=== PATIENT | male | born 1955 | race African-American/Black ===

== ENCOUNTER 2024-07-08 05:23 | Day surgery (SDC) | payer OTHER ==
[2024-07-07 15:50] VITALS: BMI 23.7
[2024-07-08] MEDS ORDERED: PROPOFOL 20 ML ONE ×2 (11:55→12:49)
[2024-07-08] MEDS ORDERED: ONDANSETRON 4 MG/2 ML VIAL ONE (11:55)
[2024-07-08] MEDS ORDERED: DEXAMETHASONE SOD PHOSPHATE 4 MG/1 ML VIAL ONE ×2 (11:55→12:56)
[2024-07-08] MEDS ORDERED: MIDAZOLAM HCL 2 MG/2 ML SINGLE DOSE VIAL ONE (11:55)
[2024-07-08] MEDS ORDERED: VANCOMYCIN 1,000 MG VIAL (RESTRICTED TO ID ONLY) ONE (11:55)
[2024-07-08] MEDS ORDERED: LIDOCAINE HCL 2% 100 MG/5 ML DISP.SYRIN ONE (11:56)
[2024-07-08] MEDS: VANCOMYCIN 1 GM in NS (PRE-DOCKED) 1,000 MG/250 ML (RESTRICTED TO ID ONLY) IVPB ONE (11:58)
[2024-07-08] MEDS ORDERED: GENTAMICIN SO4 80 MG/2 ML VIAL ONE (12:03)
[2024-07-08] MEDS: GENTAMICIN 80MG PREMIX BAG IVPB ONE (12:25)
[2024-07-08] MEDS ORDERED: ceFAZolin SODIUM 1 GM VIAL ONE (12:57)
[2024-07-08] MEDS: ceFAZolin SODIUM 1 GM VIAL IVPB ONE (12:58)
[2024-07-08] MEDS ORDERED: SUGAMMADEX SODIUM 200 MG/2 ML VIAL ONE (13:08)
[2024-07-08] MEDS: LIDOCAINE HCL 1%, 10 MG/ML (50 mL VIAL) INF ONE (13:15)
[2024-07-08] MEDS: BUPIVACAINE HCL/PF 0.5% (5 MG/ML) 30 ML VIAL IJ ONE (13:15)
[2024-07-08] MEDS ORDERED: ONDANSETRON 4 MG/2 ML VIAL IVPUSH PRN (14:31)
[2024-07-08] MEDS ORDERED: oxyCODONE HCL 5 MG TABLET PO PRN (14:31)
[2024-07-08] MEDS ORDERED: LACTATED RINGERS SOLUTION 1,000 ML IV SCH (14:45)
[2024-07-08] MEDS: ACETAMINOPHEN INJECTION 100 ML ONE (14:58)
[2024-07-08] MEDS: ACETAMINOPHEN 1000 MG/100 ML BAG IVPB ONE (14:58)
[2024-07-08 16:45] VITALS: RESP 16
[2024-07-08 17:36] VITALS: BP 134/71; PULSE 96; TEMP 97.5
== END 2024-07-08 18:00 | disposition home or self-care (01) ==
LOC: JASU-SURG 05:23
PROVIDERS: ATTEND Urology
PROC: 0VUS0JZ Supplement Penis with Synthetic Substitute, Open Approach (ICD-10-PCS; principal; 2024-07-08 12:00)
DX: N52.9 Male erectile dysfunction, unspecified (principal)
CPT/HCPCS: 54405; C1813; 94760; J0131